=== PATIENT | male | born 1995 | race Caucasian/White ===

== ENCOUNTER 2017-12-20 23:39 | Emergency (ER) | payer SELFPAY ==
[2017-12-21] MEDS ORDERED: Acetaminophen/oxyCODONE 325-5 MG Tab PO ONE (00:19)
--- NOTE | 2017-12-21 00:25 | EDM.PDOC ---
ED HPI GENERAL MEDICAL PROBLEM - General Chief Complaint: Lower Extremity Injury/Pain Stated Complaint: 200# DROPPED ON LEFT BIG TOE/FOOT Time Seen by Provider: 12/21/17 00:20 Source of Information: Reports: Patient, RN History Limitations: Reports: No Limitations - History of Present Illness INITIAL COMMENTS - FREE TEXT/NARRATIVE: 22`yo male dropped a heavy object onto his L great toe tonight. Here with pain and blood coming from under the nail. Tetanus is UTD. Onset: Today Onset Date: 12/21/17 Onset Time: 23:25 Duration: Minutes:, Constant Location: Reports: Lower Extremity, Left Quality: Reports: Ache Severity: Moderate Improves with: Reports: None Worsens with: Reports: Movement Context: Reports: Trauma Associated Symptoms: Reports: No Other Symptoms Treatments [employer]: Reports: Other (see below) (none) Left 1-Hallux Pain Score (Numeric/FACES): 9 - Related Data Allergies Allergy/AdvReac Type Severity Reaction Status Date / Time No Known Allergies Allergy Verified 12/21/17 00:09 Home Meds: Home Meds NK [No Known Home Meds] 12/21/17 [History] Past Medical History HEENT History: Reports: Allergic Rhinitis Cardiovascular History: Reports: Hypertension Psychiatric History: Reports: Bipolar - Past Surgical History HEENT Surgical History: Reports: Adenoidectomy, Myringotomy w Tube(s), Tonsillectomy Social & Family History - Tobacco Use Smoking Status *Q: Current Every Day Smoker Years of Tobacco use: 7 Packs/Tins Daily: 1 - Caffeine Use Caffeine Use: Reports: Energy Drinks - Recreational Drug Use Recreational Drug Use: No Review of Systems - Review of Systems Review Of Systems: See Below Musculoskeletal: Reports: Other (L great toe pain.) Skin: Reports: Change in Hair/Nails (L great toenail with blood from beneath it. ) ED EXAM, GENERAL - Physical Exam Exam: See Below Exam Limited By: No Limitations General Appearance: Alert, WD/WN, No Apparent Distress Extremities: Other (blood from under nail. No deformity. Nail is thick and discolored. ) Neurological: Alert, Oriented, CN II-XII Intact, Normal Cognition, No Motor/ Sensory Deficits Skin Exam: Warm, Dry, Intact, Normal Color, No Rash Course - Vital Signs Last Recorded V/S: Last Vital Signs Temp 36.8 C 12/21/17 00:03 Pulse 75 12/21/17 00:03 Resp 18 12/21/17 00:03 BP 135/61 12/21/17 00:03 Pulse Ox 98 12/21/17 00:03 - Orders/Labs/Meds Orders: Active Orders 24 hr Category Date Time Status Toes Great Toe Lt TA [CR] Stat Exams 12/21/17 00:19 Taken Meds: Medications Discontinued Medications Generic Name Dose Route Start Last Admin Trade Name [place] PRN Reason Stop Dose Admin Oxycodone/Acetaminophen 1 tab 12/21/17 00:19 12/21/17 00:24 Percocet 325-5 Mg PO 12/21/17 00:20 1 tab ONETIME ONE Administration - Radiology Interpretation Free Text/Narrative:: L great toe X-ray-neg Departure - Departure Time of Disposition: 01:00 Disposition: Home, Self-Care 01 Condition: Good Clinical Impression: Subungual hematoma Contusion of toe of left foot Qualifiers: Encounter type: initial encounter Toe: great toe - Discharge Information Referrals: PCP,None [Primary Care Provider] - Forms: ED Department Discharge - My Orders Last 24 Hours: My Active Orders 12/21/17 00:19 Toes Great Toe Lt TA [CR] Stat - Assessment/Plan Last 24 Hours: My Active Orders 12/21/17 00:19 Toes Great Toe Lt TA [CR] Stat
--- NOTE | 2017-12-21 08:54 | CR ---
Toes Great Toe Lt TA CLINICAL HISTORY: Pain, trauma FINDINGS: There is no acute fracture or dislocation within the foot. No destructive changes are prese nt. There is an ossific density off the lateral periarticular aspect of the first metatarsal. IMPRESSION: Small ossific density off the lateral aspect of the first MTP joint. This is most likely a secondary ossification center. The chip fracture is felt less likely but not excluded. Clinical cor relation necessary
== END 2017-12-21 01:21 | disposition home or self-care (01) ==
LOC: JP.ED 23:39
DX: S90.212A Contusion of left great toe with damage to nail, initial encounter (principal); F17.210 Nicotine dependence, cigarettes, uncomplicated; I10 Essential (primary) hypertension; W20.8XXA Other cause of strike by thrown, projected or falling object, initial encounter
CPT/HCPCS: 73660; 99284; A9270